=== PATIENT | female | born 1965 | race Two or more races ===

== ENCOUNTER 2024-09-20 08:14 | Emergency (ER) | payer MEDICAID ==
[2024-09-22] MEDS ORDERED: CIPR2.5D20 RIGHT EAR (15:41)
[2024-09-22] MEDS ORDERED: DIPH25CA83 PO (15:41)
[2024-09-22] MEDS ORDERED: LEVO750T68 PO (15:45)
== END 2024-09-20 08:35 | disposition left against medical advice (07) ==
LOC: ER 08:14
DX: H92.09 Otalgia, unspecified ear (principal); Z53.21 Procedure and treatment not carried out due to patient leaving prior to being seen by health care provider